=== PATIENT | female | born 1935 | race Caucasian/White ===

== ENCOUNTER → 2017-03-08 | Outpatient (CLI) | payer MEDICARE ==
[~2017-03-08] MED LIST: APRI0.372 PO; ASPI-146 PO; COMMODE 3-IN-11 MIS; CPMMACHINE; ENAL2.5T PO; ENOX40IN SQ; ENOX40P SQ; LEVO75TA3 PO; MAPA500T13 PO; MIRTA15 PO; NORC5TAB PO; SIMV10TA PO; VITA100036 PO; VITACAP7 PO; WALKER WHEELS/F1 MIS
[2017-03-08 12:09] LABS: BACTERIA, URINE RARE /hpf; BLOOD, URINE NEG (NEG); COMMENT (UR) CULT NOT INDICATED; CULTURE IF INDICATED CULT NOT INDICATED; GLUCOSE,URINE NEG (NEG); KETONE, URINE NEG (NEG); MUCUS URINE FEW /lpf (OCC); NITRITE,URINE NEG (NEG); SQUAMOUS EPITHELIAL CELL URINE 1 /hpf (0-5); TRANSITIONAL EPI CELLS, URINE <1 /hpf; URINE COLOR YELLOW (YELLW/STRAW)
[2017-03-08 12:09] LABS: BASOPHIL # 0.1 TH/MM3 (0-0.2); EOSINOPHIL # 0.1 TH/MM3 (0-0.4); EOSINOPHIL % 1.7 % (0.0-4.0); HEMATOCRIT 37.3 % (35.0-46.0); HEMO FLAGS DIFF FINAL; LYMPH % 32.6 % (9.0-44.0); LYMPHOCYTE # 1.8 TH/MM3 (1.0-4.8); MEAN CELL VOLUME 96.1 FL (80.0-100.0); MEAN CORPUSCULAR HEMOGLOBIN 31.6 PG (27.0-34.0); MEAN CORPUSCULAR HGB CONC 32.9 % (32.0-36.0); MONO % 10.6 % (0.0-8.0); NEUT % 54.1 % (16.0-70.0); PLATELET COUNT 304 TH/MM3 (150-450); RED BLOOD COUNT 3.88 MIL/MM3 (4.00-5.30); WHITE BLOOD COUNT 5.5 TH/MM3 (4.0-11.0)
[2017-03-08 12:18] LABS: APTT (PATIENT) 26.2 SEC (24.3-30.1); INTERNATIONAL NORMALIZED RATIO 0.9 RATIO; PROTHROMBIN TIME - PATIENT 10.3 SEC (9.8-11.6)
[2017-03-08 12:29] LABS: ANION GAP 6 MEQ/L (5-15); AST (GOT) 28 U/L (15-37); BICARBONATE 28.5 MEQ/L (21.0-32.0); BLOOD UREA NITROGEN 18 MG/DL (7-18); CHLORIDE 110 MEQ/L (98-107); GLOMERULAR FILTRATION RATE 69 ML/MIN (>89); GLUCOSE,FASTING 86 MG/DL (74-99); POTASSIUM 3.8 MEQ/L (3.5-5.1); SODIUM (NA) 144 MEQ/L (136-145)
--- NOTE | 2017-03-08 12:29 | RADRPT ---
EXAM DATE/TIME: 03/08/2017 12:14 [facility] COMPARISON: No previous studies available for comparison. INDICATIONS : Evaluate for pneumonia, pneumothorax or communicable diseases. MEDICAL HISTORY : None. SURGICAL HISTORY : None. ENCOUNTER: Initial ACUITY: 1 day PAIN SCORE: 0/10 LOCATION: chest FINDINGS: There are horizontal linear densities in the mid and lower left lung suggesting scarring or atelectas is. No discrete infiltrates and no nodular densities seen. There is mild curvature of the thoracolumb ar spine convex towards the left or the heart is normal in size. Both hemidiaphragms are well delinea alexander. There is mild accentuation of the thoracic kyphosis. CONCLUSION: No infiltrates seen and no evidence of pleural effusion. Several linear thin densities in the lower l eft lung are nonspecific in appearance that suggests atelectasis or scarring. Daniel Patton MD on March 08, 2017 at 12:26 Board Certified Radiologist. This report was verified electronically.
[2017-03-08 12:30] LABS: ALT (GPT) 24 U/L (10-53)
[2017-03-08 12:33] LABS: ALKALINE PHOSPHATASE 71 U/L (45-117); TOTAL BILIRUBIN ADULT 0.4 MG/DL (0.2-1.0)
[2017-03-08 12:48] LABS: WESTERGREN SEDIMENTATION RATE 37 mm/hr (0-30)
--- NOTE | 2017-03-09 05:22 | EKG ---
Date Performed: 03/08/2017 Time Performed: 11:19:38 PTAGE: 81 years EKG: Sinus rhythm NORMAL ECG NO PREVIOUS TRACING DOCTOR: Lucho Hammond Interpretating Date/Time 03/09/2017 05:15:10
== END ==
LOC: CPRE 11:08
PROVIDERS: ATTEND Orthopaedic Surgery
DX: Z01.810 Encounter for preprocedural cardiovascular examination (principal); Z01.811 Encounter for preprocedural respiratory examination; Z01.812 Encounter for preprocedural laboratory examination; M79.609 Pain in unspecified limb; M25.50 Pain in unspecified joint; M17.11 Unilateral primary osteoarthritis, right knee; Z96.60 Presence of unspecified orthopedic joint implant
CPT/HCPCS: 36415; 71020; 80053; 81001; 85025; 85610; 85652; 85730; 93005

== ENCOUNTER 2017-03-20 05:39 | Inpatient (IN) | payer MEDICARE ==
[~2017-03-20] VITALS: Ht 162.6 cm; Wt 62.8 kg
[~2017-03-20 05:39] MED LIST changes: -ASPI-146 PO; -COMMODE 3-IN-11 MIS; -CPMMACHINE; -ENOX40IN SQ; -ENOX40P SQ; -MAPA500T13 PO; -NORC5TAB PO; -WALKER WHEELS/F1 MIS
[2017-03-20] MEDS ORDERED: POVIDONE IODINE 7.5% SCRUB 118 ML BOTTLE TOPICAL SCH (06:00)
[2017-03-20] MEDS ORDERED: VANCOMYCIN 1000 MG/NS 250 ML (for <70 kg) IV SCH ×2 (06:00)
[2017-03-20] MEDS ORDERED: ceFAZolin 2 GM PREMIX 50 ML IV SCH (06:00)
[2017-03-20] MEDS ORDERED: DEXAMETHASONE SOD PHOS 20 MG/5 ML VIAL IV SCH (06:00)
[2017-03-20] MEDS ORDERED: METOPROLOL TARTRATE 25 MG TAB PO PRN (06:15)
[2017-03-20] MEDS ORDERED: LACTATED RINGER'S 1000 ML IV PRN (06:15)
[2017-03-20] MEDS ORDERED: CHLORHEXIDINE GLUCONATE 2 % 1 PACK (2 CLOTHS) TOPICAL PRN (06:15)
[2017-03-20] MEDS ORDERED: INSULIN HUMAN REGULAR 1,000 UNITS/10 ML VIAL SQ PRN (06:15)
[2017-03-20] MEDS ORDERED: POVIDONE IODINE 5% (ANTISEPSIS KIT) 4 APPLICATIONS EACH NARE PRN (06:15)
[2017-03-20] MEDS ORDERED: SODIUM CHLORID 0.9% 500 ML IV PRN (06:15)
[2017-03-20] MEDS ORDERED: MAPA500T13 PO (06:21)
--- NOTE | 2017-03-20 06:50 | HHI.DCPOC ---
Discharge Care Plan Diagnosis: (1) Primary localized osteoarthrosis, lower leg (2) Status post total knee replacement, right Your Health Problems Are: Difficulty with ADL Goals to Promote Your Health * To prevent worsening of your condition and complications * To maintain your health at the optimal level Directions to Meet Your Goals Take your medications as prescribed Follow your dietary instruction Follow activity as directed Keep your appointments as scheduled Take your immunizations and boosters as scheduled If your symptoms worsen call your PCP, if no PCP go to Urgent Care Center or Emergency Room Smoking is Dangerous to Your Health. Avoid second hand smoke Call the 24-hour hour crisis hotline for domestic abuse at Arcenio Suggs Mar 20, 2017 06:50
--- NOTE | 2017-03-20 06:51 | HHI.FF ---
Face to Face Verification Diagnosis: (1) Primary localized osteoarthrosis, lower leg (2) Status post total knee replacement, right Physical Therapy Gait training, Transfer training, bed to chair Knee: Total knee Right LE Weight Bearing: WB as tolerated Right LE Range of Motion: Active ROM Nursing Nursing: Syed teaching, Dressing changes Dressing Changes: Daily dressing change I have seen patient Shakira Melchor on 03/20/17. My clinical findings support the need for the requested home health care services because: Limited ability to care for self High risk of falls I certify that my clinical findings support that this patient is homebound because: Post-op weakness Unsteady gait/balance Arcenio Suggs Mar 20, 2017 06:51
[2017-03-20] MEDS ORDERED: COMMODE 3-IN-11 MIS (06:52)
[2017-03-20] MEDS ORDERED: WALKER WHEELS/F1 MIS (06:52)
[2017-03-20] MEDS ORDERED: CPMMACHINE (06:52)
[2017-03-20] MEDS ORDERED: ACETAMINOPHEN 1000 MG/100 ML 100 ML IV ONE (07:00)
[2017-03-20] MEDS ORDERED: PROPOFOL 500 MG/50 ML INJ 50 ML ONE (07:08)
[2017-03-20] MEDS ORDERED: BUPIVACAINE LIPOSOME PF 1.3% 20 ML VIAL ONE (07:09)
[2017-03-20] MEDS ORDERED: ROPIVACAINE PERI-ARTICULAR INJECTION. P-ARTICULR SCH ×5 (08:30)
[2017-03-20] MEDS ORDERED: SODIUM CHLORIDE 0.9% IV SCH ×2 (08:30→12:00)
[2017-03-20] MEDS ORDERED: TRANEXAMIC ACID IV SCH ×2 (08:30→12:00)
[2017-03-20] MEDS ORDERED: GENTAMICIN SULFATE 80 MG/2 ML VIAL ONE (09:12)
[2017-03-20] MEDS ORDERED: MORPHINE SULFATE 4 MG/ML INJ IV PUSH PRN (10:30)
[2017-03-20] MEDS ORDERED: NALOXONE HCL 0.4 MG/ML AMP IV PUSH PRN (10:30)
[2017-03-20] MEDS ORDERED: SODIUM CHLORIDE 0.9% FLUSH 5 ML FLUSH IVF PRN (10:30)
[2017-03-20] MEDS ORDERED: ONDANSETRON HCL 4 MG/2 ML VIAL IVP PRN (10:30)
[2017-03-20] MEDS ORDERED: Post-op Orders (for Pharmacy) MISC XX ONE (10:30)
[2017-03-20] MEDS ORDERED: BISACODYL 10 MG SUPP RECTAL PRN (10:30)
[2017-03-20] MEDS ORDERED: ALUMINUM/MAGNESIUM/SIMETH 30 ML CUP PO PRN (10:30)
[2017-03-20] MEDS ORDERED: diphenhydrAMINE HCL 50 MG/ML VIAL IV PUSH PRN (10:30)
--- NOTE | 2017-03-20 10:31 | PD.OP ---
cc: Nathan Nathan MD Operative Report Date of Surgery: Mar 20, 2017 Preoperative Diagnosis: Right knee severe osteoarthritis with valgus alignment Postoperative Diagnosis: Same Procedure: Right total knee arthroplasty Anesthesia: Spinal and adductor canal block Surgeon: Nathan Nathan Laborer [employer](s): PETRONA Bush The surgical procedure was assisted by my Advanced Registered Nurse Practitioner. My BILINGUAL HR GENERALIST presence was necessary throughout this case for the manipulation and positioning of the surgical extremity. My BILINGUAL HR GENERALIST was assisting me throughout the duration of this procedure. The skill set of an Advance Registered Nurse Practitioner was medically necessary to complete this procedure. During the surgical case, the surgical asst was working at the back table and the Advance Registered Nurse Practitioner was directly assisting me. Operation and Findings: IMPLANTS: DePuy Attune: Patella: size 35. Femur, posterior stabilized size 6 narrow. Tibia, rotating platform size 5. Tibial insert, rotating platform, posterior stabilized size 6 mm thickness. ESTIMATED BLOOD LOSS: 150 cc TOURNIQUET TIME: 42 minutes at 250 mmHg pressure. JUSTIFICATION FOR PROCEDURE: The patient has end-stage osteoarthritis to the knee. There is an attached conservative measures pathway form in the chart that describes the nonoperative measures that were undertaken prior to consideration of surgical management. The patient understood the risks and benefits of surgical management. See my office notes for further details PROCEDURE: The patient was brought back to the operative theatre. Adequate anesthesia was obtained. The patient received intravenous vancomycin and Ancef. The lower extremity was prepped and draped in the usual sterile fashion.The leg was exsanguinated, the tourniquet was raised. A standard anterior incision was performed followed by medial parapatellar arthrotomy was performed. End-stage arthritis was identified. Osteotomy of the patella was performed. We drilled holes for the patella. We trialed the patella component. We placed an intramedullary guide into the distal femur. We ultimately resected 14 mm off of the distal femur in 5 degrees of valgus. Note that the distal femur on the lateral side had significant hypoplasia of the lateral femoral condyle. However, there was not significant hypoplasia of the posterior portion of the lateral femoral condyle. The remnants of the ACL and PCL were resected. Osteotomy of the proximal tibia was performed, resecting 5 mm off of the medial side. This was done with 3 degrees of posterior slope using an extramedullary guide. The distal end of the guide was placed in the mid aspect of the ankle. The femur was sized, and four chamfer cuts were completed in 3 of external rotation, determined by both the guide and also the epicondylar axis. We then cut the central box in the distal femur to replace the PCL. We resected the remnants of the menisci and removed osteophytes off of the femur and tibia. We then trialed the knee. We did find quite a bit of tightness of the lateral portion of the knee. This did require stepwise recession of the popliteus tendon followed by the IT band followed by the lateral collateral ligament. We punched the tibia for the keel, and then used standard technique to cement in components. Excess cement was removed. We trialed the knee again and the final polyethylene thickness was chosen to provide extension to 0 degrees, and flexion of 140 degrees to gravity. The ligaments were appropriately balanced. Lateral release was necessary to obtain excellent patellofemoral tracking. The tourniquet was released and adequate hemostasis was obtained. An intra- articular injection of a ropivacaine cocktail was injected. The posterior knee was inspected for excess cement, which was removed. The final polyethylene was put into position after thorough irrigation. We then closed deep fascia with a #2 Stratafix followed by skin with 2-0 Vicryl followed by cindy. Postop plan is to weight-bear as tolerated. DVT prophylaxis will be performed with SCDs, WOO galvez, early mobilization, and Lovenox followed by aspirin. Nathan Nathan MD Mar 20, 2017 10:31
[2017-03-20] MEDS ORDERED: ASPI-146 PO (10:33)
[2017-03-20] MEDS ORDERED: ENOX40IN SQ (10:33)
[2017-03-20] MEDS ORDERED: NORC5TAB PO (10:33)
[2017-03-20] MEDS ORDERED: *morphine SULFATE 8 MG/ML PERIprocedure ONLY ONE ×3 (11:07→11:39)
[2017-03-20] MEDS: SODIUM CHLOR 0.9% 1000 ML INJ 1,000 ML IV SCH ×2 (11:36→20:23)
[2017-03-20] MEDS ORDERED: ALPRAZolam 0.5 MG TAB PO PRN (11:45)
--- NOTE | 2017-03-20 11:51 | RADRPT ---
EXAM DATE/TIME: 03/20/2017 11:16 [facility] COMPARISON: No previous studies available for comparison. INDICATIONS : Post op right knee. MEDICAL HISTORY : None. SURGICAL HISTORY : None. ENCOUNTER: Initial ACUITY: 1 day PAIN SCORE: Non-responsive. LOCATION: Right knee. FINDINGS: AP and lateral views of the knee following arthroplasty reveals a prosthesis in anatomic alignment. F racture is not appreciated. Surgical drain is evident CONCLUSION: Status post total knee arthroplasty. Steve Caicedo MD FACR Board Certified Radiologist. This report was verified electronically.
--- NOTE | 2017-03-20 12:25 | MB ---
cc: EVERARDO CADET MD DATE OF CONSULTATION 03/20/2017 REASON FOR CONSULTATION Medical consultation. HISTORY OF PRESENT ILLNESS Shakira Garcia is an 81-year-old female who recently established with me in my office for primary care. She has had ongoing right knee pain and I cleared her medically for surgery. She has now undergone right total knee replacement. I was called for a medical consultation.. The patient was seen in post anesthesia care unit. She states that she is doing surprisingly well and she is very alert. She has no new complaints and was seen with the store stock help and she is asymptomatic. PAST MEDICAL HISTORY 1. Anxiety 2. Hyperlipidemia 3. Hypertension 4. Hypothyroidism 5. Leukopenia 6. Lymphocytic colitis 7. Weakness 8. Right knee arthritis MEDICATIONS Home medications are: 1. Tylenol 2. Multivitamin 3. Calcium and D 4. Alprazolam 0.5 p.r.n. 5. Apriso 0.375 grams daily 6. Enalapril 2.5 mg or 5 mg b.i.d. 7. Simvastatin 10 mg at bedtime 8. Levofloxacin 75 mcg daily PAST SURGICAL HISTORY Right total knee FAMILY HISTORY Mother at 89. Father at 69. SOCIAL HISTORY No alcohol, tobacco or illicit drug usage. ALLERGIES NO KNOWN DRUG ALLERGIES. REVIEW OF SYSTEMS Negative 14-point review of systems except as outlined above. PHYSICAL EXAM VITAL SIGNS: Temperature 96.9, pulse 71, respirations 20, blood pressure 158/85, pulse 100, respirations 18. GENERAL: She is an alert elderly female. She has been seen in the PACU and postoperative bundled with blankets. HEENT: Oropharynx is clear. PERRLA. NECK: Supple. No lymphadenopathy. CHEST: Clear. CARDIOVASCULAR: Regular rate and rhythm. No murmurs, rubs, clicks or gallops. ABDOMEN: Soft and nontender. EXTREMITIES: No edema. SKIN: Clear. MUSCULOSKELETAL: The right lower extremities is in a brace and wrapped. She has good pulses in her legs. NEUROLOGIC: Cranial nerves are intact. Strength is 3/5 in the upper extremities. Limited in the right due to postoperative state. Normal strength in the left lower extremity. ASSESSMENT 1. Right total knee arthroplasty 2. Right knee osteoarthritis 3. Anxiety 4. Hyperlipidemia 5. Hypertension 6. Hypothyroidism 7. Leukopenia 8. Lymphocytic colitis PLAN 1. Check CBC and CMP in the morning. 2. [place] 5 mg p.r.n. 3. Increased Enalapril to 5 mg b.i.d. if her pressures are Staying high, but will continue her 2.5 b.i.d. for now as she had been on that at home. However, she had been 140-150 on that dose with occasional spike of 170. 4. Levofloxacin 75 mcg daily 5. Remeron 15 mg at bedtime 6. Ambien p.r.n. 7. Canvas knee splint 8. SCD's and WOO's 9. Physical therapy evaluation. 10. Incentive spirometry 11. Restart Xanax 0.5 t.i.d. p.r.n. anxiety. Thank you for the medical consultation. I will follow her while she is here in the hospital and follow up with her in my office as well. Everardo Cadet MD RP/JAY /11:33 AM /12:05 PM
[2017-03-20] MEDS ORDERED: *HYDROmorphone PF 1 MG VIAL PERIprocedural Use ONLY ONE (12:45)
[2017-03-20 16:53] VITALS: BP 133/64; PULSE 84; RESP 19; TEMP 96.2; O2SAT 95
[2017-03-20] MEDS: ACETAMINOPHEN/HYDROcodone 325 MG/5 MG TAB PO PRN (17:27)
[2017-03-20 19:00] VITALS: BP 115/72; PULSE 83; RESP 16; TEMP 98.3; O2SAT 97
[2017-03-20] MEDS: SODIUM CHLORIDE 0.9% FLUSH 5 ML FLUSH IVF SCH (20:23)
[2017-03-20] MEDS: ENALAPRIL MALEATE 2.5 MG TAB PO SCH (20:23)
[2017-03-20] MEDS: MIRTAZAPINE 15 MG TAB PO SCH (20:23)
[2017-03-20] MEDS ORDERED: ZOLPIDEM TARTRATE 5 MG TAB PO PRN (21:00)
[2017-03-21] VITALS: BP 112/66; PULSE 88; RESP 16; TEMP 96.6; O2SAT 95
[2017-03-21 04:00] VITALS: BP 102/56; PULSE 80; RESP 16; TEMP 96.5; O2SAT 94
[2017-03-21] MEDS: SODIUM CHLOR 0.9% 1000 ML INJ 1,000 ML IV SCH ×2 (04:55→07:37)
[2017-03-21] MEDS: LEVOTHYROXINE SODIUM 75 MCG TAB PO SCH (04:55)
[2017-03-21 06:51] LABS: HEMATOCRIT 26.9 % (35.0-46.0); MEAN CELL VOLUME 97.5 FL (80.0-100.0); MEAN CORPUSCULAR HEMOGLOBIN 32.2 PG (27.0-34.0); MEAN CORPUSCULAR HGB CONC 33.1 % (32.0-36.0); PLATELET COUNT 244 TH/MM3 (150-450); RED BLOOD COUNT 2.76 MIL/MM3 (4.00-5.30); RED CELL DISTRIBUTION WIDTH 14.8 % (11.6-17.2); REVIEW FLAG FINAL; WHITE BLOOD COUNT 15.6 TH/MM3 (4.0-11.0)
[2017-03-21 07:17] LABS: ANION GAP 6 MEQ/L (5-15); AST (GOT) 27 U/L (15-37); BICARBONATE 26.6 MEQ/L (21.0-32.0); BLOOD UREA NITROGEN 24 MG/DL (7-18); CHLORIDE 109 MEQ/L (98-107); GLOMERULAR FILTRATION RATE 54 ML/MIN (>89); POTASSIUM 3.5 MEQ/L (3.5-5.1); SODIUM (NA) 142 MEQ/L (136-145)
[2017-03-21 07:20] LABS: ALKALINE PHOSPHATASE 53 U/L (45-117); ALT (GPT) 24 U/L (10-53); TOTAL BILIRUBIN ADULT 0.4 MG/DL (0.2-1.0)
[2017-03-21] MEDS: ENALAPRIL MALEATE 2.5 MG TAB PO SCH ×2 (07:32→23:54)
[2017-03-21] MEDS: MAGNESIUM HYDROXIDE SUSP 30 ML CUP PO PRN (07:32)
[2017-03-21] MEDS: PRAVASTATIN SOD 20 MG TAB PO SCH (07:33)
[2017-03-21] MEDS: SODIUM CHLORIDE 0.9% FLUSH 5 ML FLUSH IVF SCH ×2 (07:33→21:00)
[2017-03-21] MEDS: ACETAMINOPHEN/HYDROcodone 325 MG/5 MG TAB PO PRN ×4 (07:37→18:03)
[2017-03-21] MEDS ORDERED: DEXAMETHASONE SOD PHOS 20 MG/5 ML VIAL IV ONE (07:45)
[2017-03-21 08:00] VITALS: BP 109/57; PULSE 91; RESP 16; TEMP 98; O2SAT 96
[2017-03-21] MEDS ORDERED: MESALAMINE 0.375 GM PO SCH (09:00)
[2017-03-21] MEDS ORDERED: INFLUENZA VIRUS VACCINE (QUADRIVALENT) 0.5 ML SYR IM ONE (10:00)
[2017-03-21] MEDS: ENOXAPARIN SODIUM 40 MG/0.4 ML SYRINGE SQ SCH (10:06)
[2017-03-21 12:00] VITALS: BP 110/58; PULSE 86; RESP 16; TEMP 97.7; O2SAT 96
[2017-03-21 16:00] VITALS: BP 154/67; PULSE 90; RESP 16; TEMP 96.9; O2SAT 97
--- NOTE | 2017-03-21 16:33 | HHI.FPPN ---
Subjective Remarks C/O SEVERE R KNEE PAIN THINKS SHE CAN GO HOME CONF W SON D/W RN Objective Vitals Vital Signs Date Time Temp Pulse Resp B/P (MAP) Pulse Ox O2 Delivery O2 Flow Rate FiO2 03/21/17 12:00 97.7 86 16 110/58 (75) 96 03/21/17 08:00 98.0 91 16 109/57 (74) 96 03/21/17 07:37 Room Air 03/21/17 04:00 96.5 80 16 102/56 (71) 94 03/21/17 00:00 96.6 88 16 112/66 (81) 95 03/20/17 19:00 98.3 83 16 115/72 (86) 97 03/20/17 16:53 96.2 84 19 133/64 (87) 95 I/O 03/20/17 03/20/17 03/20/17 03/21/17 03/21/17 03/21/17 07:00 15:00 23:00 07:00 15:00 23:00 Intake Total 100 ml 1694 ml 915 ml Output Total 150 ml Balance 100 ml 1544 ml 915 ml Intake Oral 480 ml 480 ml IV Total 100 ml 514 ml 435 ml Other 700 ml Output Estimated Blood Loss 150 ml # Voids 3 3 # Bowel Movements 0 0 Result Diagram: 03/21/1734 03/21/17533 Objective Remarks GENERAL: SKIN: Warm and dry. HEAD: Atraumatic. Normocephalic. EYES: Pupils equal and round. No scleral icterus. No injection or drainage. ENT: No nasal bleeding or discharge. Mucous membranes pink and moist. NECK: Trachea midline. No JVD. CARDIOVASCULAR: Regular rate and rhythm. RESPIRATORY: No accessory muscle use. Clear to auscultation. Breath sounds equal bilaterally. GASTROINTESTINAL: Abdomen soft, non-tender, nondistended. Hepatic and splenic margins not palpable. MUSCULOSKELETAL: Extremities without clubbing, cyanosis, or edema. No obvious deformities. NEUROLOGICAL: Awake and alert. No obvious cranial nerve deficits. Motor grossly within normal limits. 2 out of 5 muscle strength in the arms and legs. Normal speech. PSYCHIATRIC: Appropriate mood and affect; insight and judgment normal. Medications and IVs Current Medications Medications (Trade) Dose Ordered Sig/Mal Route Start Time Stop Time Status Last Admin (Betadine 7.5% Scrub) 1 applic ONCE TOPICAL 03/20/17 06:00 03/23/17 05:59 03/20/17 06:42 Cefazolin Sodium/ Dextrose 50 ml @ 100 mls/hr SHOE LINING FITTER IV 03/20/17 06:00 03/23/17 05:59 03/20/17 08:14 Vancomycin HCl 1000 mg/Sodium Chloride 250 ml @ 250 mls/hr SHOE LINING FITTER IV 03/20/17 06:00 03/23/17 05:59 03/20/17 08:42 Lactated Ringer's 1,000 ml @ 30 mls/hr Q24H PRN IV 03/20/17 06:15 03/23/17 06:14 03/20/17 07:05 Sodium Chloride 500 ml @ 30 mls/hr [id number] PRN IV 03/20/17 06:15 03/23/17 06:14 (Lopressor) 25 mg SHOE LINING FITTER PRN PO 03/20/17 06:15 03/23/17 06:14 (Betadine 5% Antisepsis Kit) 1 applic SHOE LINING FITTER PRN EACH NARE 03/20/17 06:15 03/23/17 06:14 (Chlorhexidine 2% Cloth) 3 pack SHOE LINING FITTER PRN TOPICAL 03/20/17 06:15 03/23/17 06:14 03/20/17 06:00 (NovoLIN R INJ) See Protocol Table ... SHOE LINING FITTER PRN SQ 03/20/17 06:15 03/23/17 06:14 (Vasotec) 2.5 mg BID PO 03/20/17 21:00 03/21/17 07:32 (Synthroid) 75 mcg DAILY@0600 PO 03/21/17 06:00 03/21/17 04:55 (Remeron) 15 mg HS PO 03/20/17 21:00 03/20/17 20:23 Patient Own Medication PT OWN MED: MESALAM... DAILY PO 03/21/17 09:00 Future Hold (Pravachol) 20 mg DAILY PO 03/21/17 09:00 03/21/17 07:33 Sodium Chloride 1,000 ml @ 100 mls/hr Q10H IV 03/20/17 10:27 03/20/17 11:36 (NS Flush) 2 ml UNSCH PRN IVF 03/20/17 10:30 (NS Flush) 2 ml BID IVF 03/20/17 21:00 03/21/17 07:33 (Lovenox Inj) 40 mg Q24H SQ 03/21/17 10:00 03/30/17 10:01 03/21/17 10:06 ([place] 5-325 Mg) 1 tab Q4H PRN PO 03/20/17 10:30 03/21/17 10:05 ([place] 5-325 Mg) 2 tab Q4H PRN PO 03/20/17 10:30 03/21/17 13:44 (Theragran M Tab) 1 tab BID PO 03/21/17 21:00 05/20/17 20:59 (Zofran Inj) 4 mg Q6H PRN IVP 03/20/17 10:30 (Colace) 100 mg BID PO 03/21/17 21:00 (Mag-Al Plus Susp Liq) 30 ml Q6H PRN PO 03/20/17 10:30 (Ambien) 5 mg HS PRN PO 03/20/17 21:00 (Dulcolax Supp) 10 mg DAILY PRN RECTAL 03/20/17 10:30 (Milk Of Magnesia Liq) 30 ml DAILY PRN PO 03/20/17 10:30 03/21/17 07:32 (Narcan Inj) 0.4 mg UNSCH PRN IV PUSH 03/20/17 10:30 (Benadryl Inj) 25 mg Q6H PRN IV PUSH 03/20/17 10:30 (Morphine Inj) 2 mg Q3H PRN IV PUSH 03/20/17 10:30 (Xanax) 0.5 mg Q8H PRN PO 03/20/17 11:45 A/P Assessment and Plan ASSESSMENT 1. Right total knee arthroplasty 2. POST OP BLOOD LOSS ANEMIA 3. Anxiety 4. Hyperlipidemia 5. Hypertension 6. Hypothyroidism 7. Leukopenia, NOW LEUKOCYTOSIS 8. Lymphocytic colitis PLAN- Check CBC and CMP in the morning. [place] 5 mg p.r.n. DECREASE ENALAPRIL SYNTHROID 75 mcg daily Remeron 15 mg at bedtime Ambien p.r.n. Canvas knee splint SCD's and WOO's Physical therapy evaluation. Incentive spirometry Xanax 0.5 t.i.d. p.r.n. anxiety. DISPO: WILL NEED TO STAY UNTIL SATURDAY THEN SNF, FAMILY REQUESTS SHE GO TO SNF. Bhavik Mehta MD Mar 21, 2017 16:33
[2017-03-21] MEDS ORDERED: ENOX40P SQ (16:42)
--- NOTE | 2017-03-21 16:47 | PD.ORT.PN ---
Subjective Post Op Day #: 1 Subjective Remarks Patient is resting comfortably in bed with moderate right knee and calf pain. Patient has been ambulatory. Patient has requested to stay one additional night as she does not have any help at home tonight. Objective Vitals Vital Signs Date Time Temp Pulse Resp B/P (MAP) Pulse Ox O2 Delivery O2 Flow Rate FiO2 03/21/17 12:00 97.7 86 16 110/58 (75) 96 03/21/17 08:00 98.0 91 16 109/57 (74) 96 03/21/17 07:37 Room Air 03/21/17 04:00 96.5 80 16 102/56 (71) 94 03/21/17 00:00 96.6 88 16 112/66 (81) 95 03/20/17 19:00 98.3 83 16 115/72 (86) 97 03/20/17 16:53 96.2 84 19 133/64 (87) 95 I/O 03/20/17 03/20/17 03/20/17 03/21/17 03/21/17 03/21/17 07:00 15:00 23:00 07:00 15:00 23:00 Intake Total 100 ml 1694 ml 915 ml Output Total 150 ml Balance 100 ml 1544 ml 915 ml Intake Oral 480 ml 480 ml IV Total 100 ml 514 ml 435 ml Other 700 ml Output Estimated Blood Loss 150 ml # Voids 3 3 # Bowel Movements 0 0 Result Diagram: 03/21/17 0534 03/21/17 0534 Procedures Right TKA Objective Remarks Dressing changed today with small serosanguineous drainage. Incision is well approximated with surgical clips intact. No redness or s/s of infection. Calf is swollen and tender to palpation. + Arpit's. EHL/TA/G intact. 2+ pedal pulse. + SILT. Assessment & Plan Ortho Post Op Day #: 1 Problem List: Assessment and Plan POD #1: Right TKA 1. WBAT RLE 2. Lovenox for 3 weeks for DVT prophylaxis 3. Ice to the right knee PRN 4. STAT US of the Right LE to r/o DVT 5. If US is negative patient is cleared for discharge home tomorrow with home health. If + call results to PETRONA Cadena 6. F/U in the office with Dr. Nathan or PETRONA Cadena as previously scheduled. Arcenio Suggs Mar 21, 2017 16:47
--- NOTE | 2017-03-21 17:43 | RADRPT ---
EXAM DATE/TIME: 03/21/2017 16:52 [facility] COMPARISON: No previous studies available for comparison. INDICATIONS : Right leg pain. MEDICAL HISTORY : Hypertension. Thyroid disease. Colitis. Right leg pain. SURGICAL HISTORY : None. Right knee surgery. ENCOUNTER: Initial ACUITY: 1 day PAIN SCORE: 5/10 LOCATION: Right leg. TECHNIQUE: Venous ultrasound of the leg was performed from the inguinal ligament to the proximal calf. Real-anna e, color Doppler and spectral tracing, compression and augmentation techniques were used. FINDINGS: There is normal compressibility of the deep venous system from the inguinal region to the proximal ca lf. No echogenic clot is seen in the lumen of the common femoral, femoral, popliteal, and posterior tibial veins. There is a normal response of the venous system to proximal and distal augmentation an d respiration. CONCLUSION: No DVT is identified within the right lower extremity. Siddhartha Jean Baptiste MD on March 21, 2017 at 17:42 Board Certified Radiologist. This report was verified electronically.
[2017-03-21 20:00] VITALS: BP 136/64; PULSE 95; RESP 17; TEMP 97.6; O2SAT 97
[2017-03-21] MEDS: MIRTAZAPINE 15 MG TAB PO SCH (23:48)
[2017-03-21] MEDS: MULTIVITAMINS/MINERALS THERAPEUTIC TAB PO SCH (23:48)
[2017-03-21] MEDS: DOCUSATE SODIUM 100 MG CAP PO SCH (23:50)
[2017-03-22] VITALS (12 sets, daily range): BP systolic 119–168; BP diastolic 52–71; PULSE 82–101; RESP 16–22; TEMP 95.8–99.5; O2SAT 95–100
[2017-03-22] MEDS: SODIUM CHLOR 0.9% 1000 ML INJ 1,000 ML IV SCH ×3 (02:27→21:50)
[2017-03-22] MEDS: MAGNESIUM HYDROXIDE SUSP 30 ML CUP PO PRN ×2 (02:31→07:44)
[2017-03-22] MEDS: ACETAMINOPHEN/HYDROcodone 325 MG/5 MG TAB PO PRN ×3 (06:38→16:32)
[2017-03-22] MEDS: LEVOTHYROXINE SODIUM 75 MCG TAB PO SCH (06:52)
[2017-03-22] MEDS: ENOXAPARIN SODIUM 40 MG/0.4 ML SYRINGE SQ SCH (07:43)
[2017-03-22] MEDS: ENALAPRIL MALEATE 2.5 MG TAB PO SCH ×2 (07:44→21:50)
[2017-03-22] MEDS: PRAVASTATIN SOD 20 MG TAB PO SCH (07:44)
[2017-03-22] MEDS: MULTIVITAMINS/MINERALS THERAPEUTIC TAB PO SCH ×2 (07:44→21:45)
[2017-03-22] MEDS: DOCUSATE SODIUM 100 MG CAP PO SCH ×2 (07:44→21:00)
[2017-03-22] MEDS: SODIUM CHLORIDE 0.9% FLUSH 5 ML FLUSH IVF SCH ×2 (07:45→21:00)
[2017-03-22 08:36] LABS: HEMATOCRIT 21.5 % (35.0-46.0); MEAN CELL VOLUME 96.2 FL (80.0-100.0); MEAN CORPUSCULAR HEMOGLOBIN 32.2 PG (27.0-34.0); MEAN CORPUSCULAR HGB CONC 33.4 % (32.0-36.0); PLATELET COUNT 174 TH/MM3 (150-450); RED BLOOD COUNT 2.23 MIL/MM3 (4.00-5.30); RED CELL DISTRIBUTION WIDTH 14.4 % (11.6-17.2); REVIEW FLAG FINAL; WHITE BLOOD COUNT 8.7 TH/MM3 (4.0-11.0)
[2017-03-22 09:21] LABS: BICARBONATE 28.6 MEQ/L (21.0-32.0)
--- NOTE | 2017-03-22 10:22 | HHI.FPPN ---
Subjective Remarks C/O ANXIETY C/O DIARRHEA D/W RN Objective Vitals Vital Signs Date Time Temp Pulse Resp B/P (MAP) Pulse Ox O2 Delivery O2 Flow Rate FiO2 03/22/17 09:43 97.4 82 22 127/62 (83) 96 03/22/17 07:44 97.0 98 19 152/65 (94) 96 03/22/17 04:00 97.8 88 17 133/65 (87) 95 03/22/17 00:00 97.7 100 16 168/60 (96) 98 03/21/17 20:00 97.6 95 17 136/64 (88) 97 03/21/17 16:00 96.9 90 16 154/67 (96) 97 03/21/17 12:00 97.7 86 16 110/58 (75) 96 I/O 03/21/17 03/21/17 03/21/17 03/22/17 03/22/17 03/22/17 07:00 15:00 23:00 07:00 15:00 23:00 Intake Total 915 ml 1200 ml 360 ml Balance 915 ml 1200 ml 360 ml Intake Oral 480 ml 1200 ml 360 ml IV Total 435 ml # Voids 3 6 3 # Bowel Movements 0 Result Diagram: 03/22/1763603/22/17636 Objective Remarks GENERAL: SKIN: Warm and dry. HEAD: Atraumatic. Normocephalic. EYES: Pupils equal and round. No scleral icterus. No injection or drainage. ENT: No nasal bleeding or discharge. Mucous membranes pink and moist. NECK: Trachea midline. No JVD. CARDIOVASCULAR: Regular rate and rhythm. RESPIRATORY: No accessory muscle use. Clear to auscultation. Breath sounds equal bilaterally. GASTROINTESTINAL: Abdomen soft, non-tender, nondistended. Hepatic and splenic margins not palpable. MUSCULOSKELETAL: Extremities without clubbing, cyanosis, or edema. No obvious deformities. NEUROLOGICAL: Awake and alert. No obvious cranial nerve deficits. Motor grossly within normal limits. 2 out of 5 muscle strength in the arms and legs. Normal speech. PSYCHIATRIC: Appropriate mood and affect; insight and judgment normal. A/P Assessment and Plan ASSESSMENT 1. Right total knee arthroplasty 2. POST OP BLOOD LOSS ANEMIA 3. Anxiety 4. Hyperlipidemia 5. Hypertension 6. Hypothyroidism 7. Leukopenia, NOW LEUKOCYTOSIS 8. Lymphocytic colitis PLAN- STAT HGB NOW AND TRANSFUSE PRN QUESTRAN PRN Check CBC and CMP in the morning. [place] 5 mg p.r.n. DECREASE ENALAPRIL SYNTHROID 75 mcg daily Remeron 15 mg at bedtime Ambien p.r.n. Canvas knee splint SCD's and WOO's Physical therapy evaluation. Incentive spirometry Xanax 0.5 t.i.d. p.r.n. anxiety. DISPO: WILL NEED TO STAY UNTIL SATURDAY THEN [facility]. Bhavik Mehta MD Mar 22, 2017 10:22
--- NOTE | 2017-03-22 13:36 | PD.ORT.PN ---
Subjective Post Op Day #: 2 Subjective Remarks Patient is resting comfortably in bed with moderate right knee pain. Calf pain has improved. Patient has been ambulatory. Patient c/o colitis flare up this morning and states she did not receive her normal colitis medication (Apriso). Patient requesting rehab instead of going home with home health. Objective Vitals Vital Signs Date Time Temp Pulse Resp B/P (MAP) Pulse Ox O2 Delivery O2 Flow Rate FiO2 03/22/17 11:43 95.8 93 19 119/52 (74) 100 03/22/17 11:33 Room Air 03/22/17 10:45 98 Nasal Cannula 2.00 03/22/17 09:43 97.4 82 22 127/62 (83) 96 03/22/17 07:44 97.0 98 19 152/65 (94) 96 03/22/17 04:00 97.8 88 17 133/65 (87) 95 03/22/17 00:00 97.7 100 16 168/60 (96) 98 03/21/17 20:00 97.6 95 17 136/64 (88) 97 03/21/17 16:00 96.9 90 16 154/67 (96) 97 I/O 03/21/17 03/21/17 03/21/17 03/22/17 03/22/17 03/22/17 07:00 15:00 23:00 07:00 15:00 23:00 Intake Total 915 ml 1200 ml 360 ml Balance 915 ml 1200 ml 360 ml Intake Oral 480 ml 1200 ml 360 ml IV Total 435 ml # Voids 3 6 3 # Bowel Movements 0 Result Diagram: 03/22/17 1128 03/22/17 0637 Procedures Right TKA Objective Remarks Dressing C/D/I. Calf is mildly swollen with decreased tenderness to palpation. EHL/TA/G intact. 2+ pedal pulse. + SILT. Hgb: 7.1 Last 48 hours Impressions Lower Extremity Ultrasound 03/21/17 0000 Signed Impressions: Service Date/Time: March 16:52 - CONCLUSION: No DVT is identified within the right lower extremity. Siddhartha Jean Baptiste MD Assessment & Plan Ortho Post Op Day #: 2 Problem List: Assessment and Plan POD #2: Right TKA 1. WBAT RLE 2. Lovenox for 3 weeks for DVT prophylaxis 3. Ice to the right knee PRN 4. STAT US of the Right LE negative for DVT 5. Pharmacy called and patient will be taking her Apriso for her colitis. 6. Anticipatory discharge to SNF on Saturday. 7. Anemia (7.1) to be addressed with transfusion (Dr. Mehta) 8. F/U in the office with Dr. Nathan or PETRONA Cadena as previously scheduled. Arcenio Suggs Mar 22, 2017 13:36
[2017-03-22] MEDS ORDERED: CHOLESTYRAMINE 4 GM PACKET PO PRN (18:15)
[2017-03-22] MEDS: MIRTAZAPINE 15 MG TAB PO SCH (21:45)
[2017-03-23 04:00] VITALS: BP 168/82; PULSE 90; RESP 16; TEMP 98; O2SAT 95
[2017-03-23 06:21] LABS: AUTOMATED NEUTROPHIL # 5.7 TH/MM3 (1.8-7.7); BASOPHIL % 0.2 % (0.0-2.0); EOSINOPHIL % 0.1 % (0.0-4.0); HEMATOCRIT 28.3 % (35.0-46.0); HEMO FLAGS DIFF FINAL; LYMPH % 30.8 % (9.0-44.0); MEAN CELL VOLUME 92.2 FL (80.0-100.0); MEAN CORPUSCULAR HEMOGLOBIN 31.6 PG (27.0-34.0); MEAN CORPUSCULAR HGB CONC 34.3 % (32.0-36.0); MONO % 10.1 % (0.0-8.0); NEUT % 58.8 % (16.0-70.0); PLATELET COUNT 175 TH/MM3 (150-450); RED BLOOD COUNT 3.07 MIL/MM3 (4.00-5.30); RED CELL DISTRIBUTION WIDTH 14.9 % (11.6-17.2); WHITE BLOOD COUNT 9.7 TH/MM3 (4.0-11.0)
[2017-03-23 06:45] LABS: BICARBONATE 26.5 MEQ/L (21.0-32.0); POTASSIUM 3.8 MEQ/L (3.5-5.1)
[2017-03-23] MEDS: LEVOTHYROXINE SODIUM 75 MCG TAB PO SCH (06:46)
[2017-03-23] MEDS: ACETAMINOPHEN/HYDROcodone 325 MG/5 MG TAB PO PRN ×2 (06:47→10:53)
--- NOTE | 2017-03-23 07:56 | PD.ORT.PN ---
Subjective Post Op Day #: 3 Subjective Remarks painful but controlled.transfused yesterday. Objective Vitals Vital Signs Date Time Temp Pulse Resp B/P (MAP) Pulse Ox O2 Delivery O2 Flow Rate FiO2 03/23/17 04:00 98.0 90 16 168/82 (110) 95 03/22/17 21:30 95 21 03/22/17 21:15 97.2 95 16 154/71 95 03/22/17 18:18 98.5 101 16 129/56 97 03/22/17 17:52 99.5 95 18 145/69 96 03/22/17 17:30 Room Air 03/22/17 15:40 99.4 97 19 140/62 (88) 97 03/22/17 11:43 95.8 93 19 119/52 (74) 100 03/22/17 11:33 Room Air 03/22/17 10:45 98 Nasal Cannula 2.00 03/22/17 09:43 97.4 82 22 127/62 (83) 96 I/O 03/22/17 03/22/17 03/22/17 03/23/17 03/23/17 03/23/17 07:00 15:00 23:00 07:00 15:00 23:00 Intake Total 360 ml 600 ml 880 ml 730 ml Balance 360 ml 600 ml 880 ml 730 ml Intake Oral 360 ml 600 ml 480 ml 360 ml Packed Cells 400 ml 360 ml Blood Product IV Normal Saline Flush 10 ml # Voids 3 3 2 3 # Bowel Movements 3 Result Diagram: 03/23/17 0536 03/23/17 0536 Procedures Right TKA Objective Remarks Dressing C/D/I. neg homans. EHL/TA/G intact. 2+ pedal pulse. + SILT. Lower Extremity Ultrasound 03/21/17 0000 Signed Impressions: Service Date/Time: March 16:52 - CONCLUSION: No DVT is identified within the right lower extremity. Siddhartha Jean Baptiste MD Assessment & Plan Assessment and Plan POD #3: Right TKA 1. WBAT RLE 2. Lovenox for 3 weeks for DVT prophylaxis 3. Ice to the right knee PRN 4. STAT US of the Right LE negative for DVT 5. Pharmacy called and patient will be taking her Apriso for her colitis. 6. Anticipatory discharge to SNF on Saturday - cleared by ortho. 7. Anemia - transfused yesterday 8. F/U in the office with Dr. Nathan or PETRONA Cadena as previously scheduled. Nishant Palacios Mar 23, 2017 07:56
[2017-03-23 08:00] VITALS: BP 150/77; PULSE 88; RESP 16; TEMP 97.4; O2SAT 95
[2017-03-23] MEDS: SODIUM CHLOR 0.9% 1000 ML INJ 1,000 ML IV SCH (08:27)
[2017-03-23] MEDS: SODIUM CHLORIDE 0.9% FLUSH 5 ML FLUSH IVF SCH (09:00)
[2017-03-23] MEDS: DOCUSATE SODIUM 100 MG CAP PO SCH (09:00)
[2017-03-23] MEDS: PRAVASTATIN SOD 20 MG TAB PO SCH (09:48)
[2017-03-23] MEDS: ENOXAPARIN SODIUM 40 MG/0.4 ML SYRINGE SQ SCH (09:49)
[2017-03-23] MEDS: MULTIVITAMINS/MINERALS THERAPEUTIC TAB PO SCH (09:49)
[2017-03-23] MEDS: ENALAPRIL MALEATE 2.5 MG TAB PO SCH (09:49)
[2017-03-23 11:05] VITALS: O2SAT 94
[2017-03-23 12:00] VITALS: BP 141/73; PULSE 88; RESP 16; TEMP 97.1; O2SAT 97
--- NOTE | 2017-03-24 16:36 | HHI.DS ---
Discharge Summary Admission Date Mar 20, 2017 at 05:39 Discharge Date: Mar 23, 2017 Admitting Diagnosis Primary localized OA, lower leg Status post total knee replacement, right Diagnosis: (1) Primary localized osteoarthrosis, lower leg Diagnosis: Principal ICD Codes: M17.10 - Unilateral primary osteoarthritis, unspecified knee (2) Status post total knee replacement, right Diagnosis: Principal ICD Codes: Z96.651 - Presence of right artificial knee joint Procedures Right TKA Brief History This is a 81 year old female patient with severe OA of the right knee. CBC/BMP: 03/23/17 0536 03/23/17 0536 Significant Findings Laboratory Tests Test 03/22/17 06:37 03/22/17 11:28 03/23/17 05:36 Red Blood Count 2.23 MIL/MM3 (4.00-5.30) 3.07 MIL/MM3 (4.00-5.30) Hemoglobin 7.2 GM/DL (11.6-15.3) 7.1 GM/DL (11.6-15.3) 9.7 GM/DL (11.6-15.3) Hematocrit 21.5 % (35.0-46.0) 28.3 % (35.0-46.0) Blood Urea Nitrogen 19 MG/DL (7-18) Random Glucose 114 MG/DL (74-106) Chloride Level 110 MEQ/L (98-107) 108 MEQ/L (98-107) Monocytes (%) (Auto) 10.1 % (0.0-8.0) Monocytes # (Auto) 1.0 TH/MM3 (0-0.9) Calcium Level 8.1 MG/DL (8.5-10.1) Estimat Glomerular Filtration Rate 83 ML/MIN (>89) PE at Discharge Dressing C/D/I. neg homans. EHL/TA/G intact. 2+ pedal pulse. + SILT. Lower Extremity Ultrasound 03/21/17 0000 Signed Impressions: Service Date/Time: March 16:52 - CONCLUSION: No DVT is identified within the right lower extremity. Siddhartha Jean Baptiste MD Hospital Course The patient was admitted to the hospital for severe OA of the right knee to have a right TKA. The patient's surgery went well with no complication. The patient is WBAT on the RLE. The patient is on a regular diet. The patient on Lovenox for 3 weeks for DVT prophylaxis. The patient was discharged to SNF and will f/u with Dr Nathan or PETRONA Cadena as previously scheduled.. Pt Condition on Discharge: Stable Discharge Disposition: Discharge to SNF Discharge Instructions Diet Instructions: As Tolerated, No Restrictions Activities You Can Perform: Weight Bearing as Malinda Activities to Avoid: Strenuous Activity Follow up Referrals: Orthopedics with Nathan Nathan MD [facility]/ with NURSE HAND BOOKED [facility] - [phone] New Medications: Commode 3-in-1 (Commode 3-in-1) 1 Mis Mis EA .ROUTE DIRECTED, #1 0 Refills CPM-Continuous Passive Motion Machine (CPM-Continuous Passive Motion Machine) 1 Ea Device EA .ROUTE DIRECTED, #1 0 Refills Enoxaparin Inj (Lovenox Inj) 40 Mg/0.4 Ml Syr 40 MG SQ DAILY for Blood Clot Prevention for 20 Days, SYRINGE 0 Refills Hydrocodone-Acetaminophen ([place]) 5-325 mg Tab 1-2 TAB PO Q4H PRN for PAIN, #60 TAB 0 Refills Walker with Front Wheels (Walker with Front Wheels) 1 Mis Mis EA .ROUTE DIRECTED, #1 0 Refills Continued Medications: B-Complex Vitamins (B Complex) 1 Cap 1 CAP PO DAILY for Nutritional Supplement, #30 CAP 0 Refills Cholecalciferol (Vitamin D3) 1,000 Unit Cap 1000 UNITS PO DAILY for Nutritional Supplement, #1 BOTTLE 0 Refills Enalapril (Enalapril) 2.5 Mg Tab 2.5 MG PO BID, TAB 0 Refills Levothyroxine (Levothyroxine) 75 Mcg Tab 75 MCG PO DAILY for Thyroid, #30 TAB 0 Refills Mirtazapine (Mirtazapine) 15 Mg Tab 15 MG PO HS for Depression Control, #30 TAB 0 Refills Simvastatin (Simvastatin) 10 Mg Tab 10 MG PO DAILY for Cholesterol Management, #30 TAB 0 Refills Discontinued Medications: Acetaminophen (Mapap Extra Strength) 500 Mg Tab 1500 MG PO Q4-6H PRN for PAIN, TAB 0 Refills Mesalamine ER 24 HR (Apriso) 0.375 Gm Caper 1.5 GM PO DAILY for Ulcerative colitis, CAP 0 Refills Arcenio Suggs Mar 24, 2017 16:36
== END 2017-03-23 14:35 | DRG 470 ==
LOC: HSDI 05:39 → N06A 16:27
PROVIDERS: ADMIT Orthopaedic Surgery; ATTEND Orthopaedic Surgery
PROC: 3E0T3BZ Introduction of Anesthetic Agent into Peripheral Nerves and Plexi, Percutaneous Approach (ICD-10-PCS; 2017-03-20)
PROC: 0SRC0J9 Replacement of Right Knee Joint with Synthetic Substitute, Cemented, Open Approach (ICD-10-PCS; principal; 2017-03-20 08:29)
PROC: 30233N1 Transfusion of Nonautologous Red Blood Cells into Peripheral Vein, Percutaneous Approach (ICD-10-PCS; 2017-03-22)
DX: M17.11 Unilateral primary osteoarthritis, right knee (principal); D62 Acute posthemorrhagic anemia; I10 Essential (primary) hypertension; E78.5 Hyperlipidemia, unspecified; E03.9 Hypothyroidism, unspecified; F41.9 Anxiety disorder, unspecified; Z23 Encounter for immunization
CPT/HCPCS: 36430; 73560; 80048; 80053; 85018; 85025; 85027; 86850; 86900; 86901; 86920; 90471; 90686; 93971; 94150; C9290; G0008; J0131; J0690; J0735; J1100; J1170; J1580; J1650; J1885; J2270; J2795; J3370; J7030; J7050; J7120; L1830; P9016; Q2038